=== PATIENT | female | born 1970 | race Hispanic/Latino ===

== ENCOUNTER 2017-07-15 23:23 | Emergency (ER) | payer MEDICAID, SELFPAY ==
--- NOTE | 2017-07-16 01:16 | EDPHYS ---
Physician Documentation [facility] Name: Joyce Anaya Age: 47 yrs Sex: Female : 1970 Arrival Date: 07/15/2017 Time: 23:43 Bed 25 Private MD: ED Physician Alvarez Gresham HPI: 07/16 01:13 This 47 yrs old Female presents to ER via Ambulatory with complaints of fall r gs wrist pain. 01:13 The patient or guardian reports pain. The complaints affect the right wrist diffusely. gs Context: resulted from a fall, slipped, while walking. Onset: The symptoms/episode began/occurred yesterday. Modifying factors: The symptoms are alleviated by nothing, the symptoms are aggravated by movement. Associated signs and symptoms: Pertinent negatives: decreased sensation distally, numbness distally. The patient has not experienced similar symptoms in the past. Historical: - Allergies: 00:00 No Known Allergies; bb - Home Meds: 07/15 23:59 None [Active]; tl3 07/16 00:00 vitamins [Active]; bb - PMHx: 00:00 allergies; bb - PSHx: 07/15 23:59 None; tl3 07/16 00:00 Tubal ligation; right ankle; bb - Immunization history:: Adult Immunizations up to date, Adult Immunizations up to date. - Social history:: Smoking status: Patient/guardian denies using tobacco, Patient uses alcohol, occasionally. Patient/guardian denies using street drugs, Smoking status: Patient/guardian denies using tobacco, never smoked. ROS: 01:13 All other systems are negative. gs Exam: 01:13 Head/Face: Normocephalic, atraumatic. Eyes: Pupils equal round and reactive to light, gs extra-ocular motions intact. Lids and lashes normal. Conjunctiva and sclera are non-icteric and not injected. Cornea within normal limits. Periorbital areas with no swelling, redness, or edema. ENT: Nares patent. No nasal discharge, no septal abnormalities noted. Tympanic membranes are normal and external auditory canals are clear. Oropharynx with no redness, swelling, or masses, exudates, or evidence of obstruction, uvula midline. Mucous membranes moist. Neck: Trachea midline, no thyromegaly or masses palpated, and no cervical lymphadenopathy. Supple, full range of motion without nuchal rigidity, or vertebral point tenderness. No Meningismus. Chest/axilla: Normal chest wall appearance and motion. Nontender with no deformity. No lesions are appreciated. Cardiovascular: Regular rate and rhythm with a normal S1 and S2. No gallops, murmurs, or rubs. Normal PMI, no JVD. No pulse deficits. Respiratory: Lungs have equal breath sounds bilaterally, clear to auscultation and percussion. No rales, rhonchi or wheezes noted. No increased work of breathing, no retractions or nasal flaring. Abdomen/GI: Soft, non-tender, with normal bowel sounds. No distension or tympany. No guarding or rebound. No evidence of tenderness throughout. Back: No spinal tenderness. No costovertebral tenderness. Full range of motion. Skin: Warm, dry with normal turgor. Normal color with no rashes, no lesions, and no evidence of cellulitis. Neuro: Awake and alert, GCS 15, oriented to person, place, time, and situation. Cranial nerves II-XII grossly intact. Motor strength 5/5 in all extremities. Sensory grossly intact. Cerebellar exam normal. Normal gait. 01:13 Musculoskeletal/extremity: Circulation is intact in all extremities. Joints: the right wrist displays tenderness. Vital Signs: 07/15 23:59 BP 131 / 100; Pulse 79; Resp 16; Temp 98.1; Pulse Ox 96% ; tl3 07/16 00:00 BP 131 / 100; Pulse 79; Resp 18 S; Temp 98.1(O); Pulse Ox 97% on R/A; Weight 97.52 kg bb (R); Height 5 ft. 9 in. (175.26 cm) (R); Pain 8/10; 00:53 BP 123 / 85; Pulse 82; Resp 18; Pulse Ox 98% ; tl3 00:00 Body Mass Index 31.75 (97.52 kg, 175.26 cm) bb MDM: 00:14 Patient medically screened. gs 01:13 Differential diagnosis: closed fracture, contusion. Data reviewed: vital signs, nurses gs notes, and as a result, I will discharge patient. 07/16 00:15 Order name: Wrist Right 3 View XRAY gs Administered Medications: No medications were administered Disposition: 07/16/17 01:15 Discharged to Home. Impression: Contusion of right wrist. - Condition is Stable. - Discharge Instructions: Wrist Pain. - Medication Reconciliation Form, Thank You Letter, Antibiotic Education, Prescription Opioid Use form. - Follow up: Saroj Culp MD; When: 2 - 3 days; Reason: Re-evaluation by your physician. Signatures: Dispatcher [employer] Alyssa Salcedo RN RN bb Alvarez Gresham MD MD gs Brown, Kristina RN RN kb1 Ayah Alatorre RN RN tl3
--- NOTE | 2017-07-16 01:16 | ER ---
Nurse's Notes [facility] Name: Joyce Anaya Age: 47 yrs Sex: Female : 1970 Arrival Date: 07/15/2017 Time: 23:43 Bed 25 Private MD: Diagnosis: Contusion of right wrist Presentation: 07/15 23:54 Presenting complaint: Patient states: she fell at the [facility] on Wednesday and injured her bb right wrist and her left shoulder has been hurting off and on for several months. Transition of care: patient was not received from another setting of care. Onset of symptoms was July 12, 2017. Care prior to arrival: None. 23:54 Method Of Arrival: Ambulatory bb 23:54 Acuity: MARC 4 bb Historical: - Allergies: 07/16 00:00 No Known Allergies; bb - Home Meds: 07/15 23:59 None [Active]; tl3 07/16 00:00 vitamins [Active]; bb - PMHx: 00:00 allergies; bb - PSHx: 07/15 23:59 None; tl3 07/16 00:00 Tubal ligation; right ankle; bb - Immunization history:: Adult Immunizations up to date, Adult Immunizations up to date. - Social history:: Smoking status: Patient/guardian denies using tobacco, Patient uses alcohol, occasionally. Patient/guardian denies using street drugs, Smoking status: Patient/guardian denies using tobacco, never smoked. Screenin/22 23:59 Abuse screen: Denies threats or abuse. Nutritional screening: No deficits noted. tl3 Tuberculosis screening: No symptoms or risk factors identified. Fall Risk None identified. Assessment: 23:54 General: Appears comfortable, obese, well groomed, well developed, well nourished, tl3 Behavior is calm, cooperative, appropriate for age. Pain: Complains of pain in right wrist pain, left shoulder pain. Neuro: Level of Consciousness is awake, alert, obeys commands, Oriented to person, place, time, situation, Appropriate for age. Cardiovascular: Heart tones S1 S2 present Capillary refill < 3 seconds in right in left fingers. Respiratory: Breath sounds are clear bilaterally. GI: No signs and/or symptoms were reported involving the gastrointestinal system. : No signs and/or symptoms were reported regarding the genitourinary system. EENT: No signs and/or symptoms were reported regarding the EENT system. Derm: No signs and/or symptoms reported regarding the dermatologic system. Musculoskeletal: No signs and/or symptoms reported regarding the musculoskeletal system. Injury Description: pt fell and caught herself with her right hand, possible mild swelling noted to wrist, good pulses, able to move fingers freely and flex hand. 07/16 00:53 Reassessment: Patient appears in no apparent distress at this time. No changes from tl3 previously documented assessment. Patient and/or family updated on plan of care and expected duration. Pain level reassessed. Patient is alert, oriented x 3, equal unlabored respirations, skin warm/dry/pink. awaiting radiology report. Vital Signs: 07/15 23:59 BP 131 / 100; Pulse 79; Resp 16; Temp 98.1; Pulse Ox 96% ; tl3 07/16 00:00 BP 131 / 100; Pulse 79; Resp 18 S; Temp 98.1(O); Pulse Ox 97% on R/A; Weight 97.52 kg bb (R); Height 5 ft. 9 in. (175.26 cm) (R); Pain 8/10; 00:53 BP 123 / 85; Pulse 82; Resp 18; Pulse Ox 98% ; tl3 00:00 Body Mass Index 31.75 (97.52 kg, 175.26 cm) ED Course: 07/15 23:43 Patient arrived in ED. bb 23:51 Alvarez Gresham MD is Attending Physician. gs 23:53 Ayah Alatorre, RN is Primary Nurse. tl3 23:57 Triage completed. bb 23:59 Resting quietly. tl3 23:59 Patient has correct armband on for positive identification. Bed in low position. Call tl3 light in reach. Side rails up X 1. Pulse ox on. NIBP on. 23:59 No provider procedures requiring assistance completed. Patient did not have IV access tl3 during this emergency room visit. 07/16 00:00 Arm band placed on Patient placed in an exam room, on a stretcher, on pulse oximetry. bb 00:38 X-ray completed. Portable x-ray completed in exam room. Patient tolerated procedure kw well. 00:42 Wrist Right 3 View XRAY Sent. tl3 01:15 Saroj Culp MD is Referral Physician. gs Administered Medications: No medications were administered Outcome: 01:15 Discharge ordered by . estrellita 01:45 Discharged to home Pt left without signing D/C paperwork kb1 01:46 Patient left the ED. kb1 Signatures: Alyssa Garcia RN RN bb Kailyn Fisher Gregory, MD MD gs Brown, Kristina, RN RN kb1 Ayah Alatorre RN RN tl3
[2017-07-16 01:57] VITALS: TEMP 98.1
[2017-07-16 01:59] VITALS: BP 123/85; O2SAT 98
--- NOTE | 2017-07-16 09:03 | RAD REPORT ---
EXAM DESCRIPTION: RAD - Wrist Right 3 View - 07/16/2017 12:41 am CLINICAL HISTORY: Injury, wrist pain COMPARISON: July 2012 FINDINGS: No fracture is identified. There is no dislocation or periosteal reaction noted. Epiphyses and growth plates are Normal in appearance. No foreign body or other soft tissue abnormality. IMPRESSION: Negative right wrist examination.
== END 2017-07-16 01:46 | disposition home or self-care (01) ==
LOC: ER 23:23
DX: S60.211A Contusion of right wrist, initial encounter (principal); W01.0XXA Fall on same level from slipping, tripping and stumbling without subsequent striking against object, initial encounter; Y93.01 Activity, walking, marching and hiking
CPT/HCPCS: 99283

== ENCOUNTER 2017-09-09 23:47 | Emergency (ER) | payer SELFPAY ==
[2017-09-10] MEDS ORDERED: HYDROCODONE/APAP 10/325 TAB ONE (01:05)
--- NOTE | 2017-09-10 01:41 | EDPHYS ---
Physician Documentation [facility] Name: Joyce Anaya Age: 47 yrs Sex: Female : 1970 Arrival Date: 09/09/2017 Time: 23:48 Bed 20 Private MD: ED Physician Gokul Pro HPI: 09/10 01:01 This 47 yrs old Female presents to ER via Wheelchair with complaints of Foot kasie Swelling. 01:01 The patient presents with decreased range of motion, pain. The complaints affect the kasie lateral aspect of right knee, lateral aspect of right calf, right ankle, lateral aspect of right foot, posterior aspect of right knee, right calf, right Achilles, right heel, medial aspect of right knee, medial aspect of right calf, medial aspect of right foot, right knee, right lewis, anterior aspect of right ankle and dorsum of right foot. Context: The problem was sustained at an unknown site, resulted from an unknown cause. Onset: The symptoms/episode began/occurred 3 day(s) ago. Modifying factors: The symptoms are alleviated by elevating leg. Associated signs and symptoms: The patient has no apparent associated signs or symptoms. The patient presents with decreased range of motion, pain. The complaints affect the right ankle, lateral aspect of right knee, lateral aspect of right calf, right ankle, lateral aspect of right foot, posterior aspect of right knee, right calf, right Achilles, right heel, medial aspect of right knee, medial aspect of right calf, medial aspect of right foot, right knee, right lewis, anterior aspect of right ankle and dorsum of right foot. 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 - Social history:: Smoking status: Patient/guardian denies using tobacco. - Family history:: not pertinent. ROS: 01:01 Constitutional: Negative for fever, chills, and weight loss, Eyes: Negative for injury, kasie pain, redness, and discharge, ENT: Negative for injury, pain, and discharge, Neck: Negative for injury, pain, and swelling, Cardiovascular: Negative for chest pain, palpitations, and edema, Respiratory: Negative for shortness of breath, cough, wheezing, and pleuritic chest pain, Abdomen/GI: Negative for abdominal pain, nausea, vomiting, diarrhea, and constipation, Back: Negative for injury and pain, : Negative for injury, bleeding, discharge, and swelling, Skin: Negative for injury, rash, and discoloration, Neuro: Negative for headache, weakness, numbness, tingling, and seizure, Psych: Negative for depression, anxiety, suicide ideation, homicidal ideation, and hallucinations, Allergy/Immunology: Negative for hives, rash, and allergies, Endocrine: Negative for neck swelling, polydipsia, polyuria, polyphagia, and marked weight changes, Hematologic/Lymphatic: Negative for swollen nodes, abnormal bleeding, and unusual bruising. 01:01 MS/extremity: Positive for decreased range of motion, pain, swelling, tenderness, of the lateral aspect of right knee, lateral aspect of right calf, right ankle, lateral aspect of right foot, posterior aspect of right knee, right calf, right Achilles, right heel, medial aspect of right knee, medial aspect of right calf, medial aspect of right foot, right knee, right lewis, anterior aspect of right ankle and dorsum of right foot. Exam: 01:01 Constitutional: This is a well developed, well nourished patient who is awake, alert, kasie and in no acute distress. Head/Face: Normocephalic, atraumatic. Eyes: Pupils equal round and reactive to light, extra-ocular motions intact. Lids and lashes normal. Conjunctiva and sclera are non-icteric and not injected. Cornea within normal limits. Periorbital areas with no swelling, redness, or edema. ENT: Nares patent. No nasal discharge, no septal abnormalities noted. Tympanic membranes are normal and external auditory canals are clear. Oropharynx with no redness, swelling, or masses, exudates, or evidence of obstruction, uvula midline. Mucous membranes moist. Neck: Trachea midline, no thyromegaly or masses palpated, and no cervical lymphadenopathy. Supple, full range of motion without nuchal rigidity, or vertebral point tenderness. No Meningismus. Chest/axilla: Normal chest wall appearance and motion. Nontender with no deformity. No lesions are appreciated. Cardiovascular: Regular rate and rhythm with a normal S1 and S2. No gallops, murmurs, or rubs. Normal PMI, no JVD. No pulse deficits. Respiratory: Lungs have equal breath sounds bilaterally, clear to auscultation and percussion. No rales, rhonchi or wheezes noted. No increased work of breathing, no retractions or nasal flaring. Abdomen/GI: Soft, non-tender, with normal bowel sounds. No distension or tympany. No guarding or rebound. No evidence of tenderness throughout. Back: No spinal tenderness. No costovertebral tenderness. Full range of motion. Skin: Warm, dry with normal turgor. Normal color with no rashes, no lesions, and no evidence of cellulitis. Neuro: Awake and alert, GCS 15, oriented to person, place, time, and situation. Cranial nerves II-XII grossly intact. Motor strength 5/5 in all extremities. Sensory grossly intact. Cerebellar exam normal. Normal gait. Psych: Awake, alert, with orientation to person, place and time. Behavior, mood, and affect are within normal limits. 01:01 Musculoskeletal/extremity: Extremities: noted in the lateral aspect of right knee, lateral aspect of right calf, right ankle, lateral aspect of right foot, posterior aspect of right knee, right calf, right Achilles, right heel, medial aspect of right knee, medial aspect of right calf, medial aspect of right foot, right knee, right lewis, anterior aspect of right ankle and dorsum of right foot: decreased ROM, pain. Vital Signs: 00:08 BP 141 / 82; Pulse 91; Resp 18; Pulse Ox 98% on R/A; ea 01:55 BP 138 / 60; Pulse 80; Resp 18 S; Pulse Ox 99% on R/A; Pain 5/10; ea MDM: 00:51 Patient medically screened. [facility] 01:03 Data reviewed: vital signs, nurses notes, lab test result(s), radiologic studies, plain kasie films, ultrasound. 09/10 01:00 Order name: Urine Culture [facility] 09/10 02:09 Order name: Urine Dipstick--Ancillary (enter results) 09/10 00:48 Order name: XRAY Ankle RIGHT 2 view 09/10 00:48 Order name: XRAY Knee RIGHT 2 view 09/10 01:00 Order name: US Extremity Venous Unilateral Ltd [facility] 09/10 02:09 Order name: Urine --Ancillary (enter results) 09/10 01:00 Order name: Urine Dipstick-Ancillary (obtain specimen); Complete Time: 02:09 [facility] Administered Medications: 01:15 Drug: [place] 10 mg-325 mg 1 tabs Route: PO; ea 01:55 Follow up: Response: No adverse reaction; Pain is decreased ea Disposition: 09/10/17 01:40 Discharged to Home. Impression: Edema, unspecified, Pain in right lower leg. - Condition is Stable. - Discharge Instructions: Edema, Musculoskeletal Pain, Edema, [id number]. - Prescriptions for Tylenol- Codeine #3 300-30 mg Oral Tablet - take 2 tablets by ORAL route every 6 hours As needed; 26 tablet. - Medication Reconciliation Form, Thank You Letter, Antibiotic Education, Prescription Opioid Use form. - Follow up: Private Physician; When: 2 - 3 days; Reason: Recheck today's complaints, Continuance of care, Re-evaluation by your physician. - Problem is new. - Symptoms have improved. Signatures: Dispatcher [employer] EDWY Gokul Pro MD MD cha Antunez, Elena, RN RN tracy Corrections: (The following items were deleted from the chart) 02:13 01:40 09/10/2017 01:40 Discharged to Home. Impression: Edema, unspecified; Pain in ea right lower leg. Condition is Stable. Forms are Medication Reconciliation Form, Thank You Letter, Antibiotic Education, Prescription Opioid Use. Follow up: Private Physician; When: 2 - 3 days; Reason: Recheck today's complaints, Continuance of care, Re-evaluation by your physician. Problem is new. Symptoms have improved. [facility]
--- NOTE | 2017-09-10 01:41 | ER ---
Nurse's Notes [facility] Name: Joyce Anaya Age: 47 yrs Sex: Female : 1970 Arrival Date: 09/09/2017 Time: 23:48 Bed 20 Private MD: Diagnosis: Edema, unspecified;Pain in right lower leg Presentation: 09/10 00:08 Presenting complaint: Patient states: She noticed her right ankle started swelling two ea days ago, pt reports today it is more swollen than usual denies injury to right ankle. Transition of care: patient was not received from another setting of care. Onset of symptoms was September 10, 2017. Initial Sepsis Screen: Does the patient meet any 2 criteria? No. Patient's initial sepsis screen is negative. Does the patient have a suspected source of infection? No. Patient's initial sepsis screen is negative. Care prior to arrival: None. 00:08 Method Of Arrival: Wheelchair ea 00:08 Acuity: MARC 4 ea Triage Assessment: 00:08 General: Appears in no apparent distress. Behavior is calm, cooperative, appropriate ea for age. Pain: Complains of pain in right ankle Pain radiates to right knee Pain currently is 9 out of 10 on a pain scale. Quality of pain is described as aching. EENT: No signs and/or symptoms were reported regarding the EENT system. Neuro: No deficits noted. Cardiovascular: No deficits noted. Patient's skin is warm and dry. Respiratory: Airway is patent Respiratory effort is even, unlabored, Respiratory pattern is regular, symmetrical. GI: No signs and/or symptoms were reported involving the gastrointestinal system. : No signs and/or symptoms were reported regarding the genitourinary system. Derm: Skin is dry, Skin is normal, Skin temperature is warm. Musculoskeletal: Swelling present in right ankle. 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 - Social history:: Smoking status: Patient/guardian denies using tobacco. - Family history:: not pertinent. Screenin:17 Abuse screen: Denies threats or abuse. Nutritional screening: No deficits noted. ea Tuberculosis screening: No symptoms or risk factors identified. Fall Risk None identified. Assessment: 01:55 Reassessment: Patient and/or family updated on plan of care and expected duration. Pain ea level reassessed. Patient is alert, oriented x 3, equal unlabored respirations, skin warm/dry/pink. Discharge instructions given to patient, verbalized the understanding of instructions. Vital Signs: 00:08 BP 141 / 82; Pulse 91; Resp 18; Pulse Ox 98% on R/A; ea 01:55 BP 138 / 60; Pulse 80; Resp 18 S; Pulse Ox 99% on R/A; Pain 5/10; ea ED Course: 09/09 23:48 Patient arrived in ED. ds1 09/10 00:08 Gina Alatorre, RN is Primary Nurse. ea 00:10 Arm band placed on right wrist. ea 00:14 Triage completed. ea 00:51 Gokul Pro MD is Attending Physician. kasie 01:04 X-ray completed. Portable x-ray completed in exam room. Patient tolerated procedure kw well. 01:05 XRAY Ankle RIGHT 2 view In Process Unspecified. EDMS 01:05 XRAY Knee RIGHT 2 view In Process Unspecified. EDMS 01:18 Patient has correct armband on for positive identification. Bed in low position. Call ea light in reach. Side rails up X2. 01:20 Patient taken to ultrasound. via wheelchair. aa4 01:35 Ultrasound completed. Patient tolerated well. Patient moved back from ultrasound. aa4 01:53 US Extremity Venous Unilateral Ltd In Process Unspecified. EDMS 02:08 No provider procedures requiring assistance completed. Patient did not have IV access ea during this emergency room visit. Administered Medications: 01:15 Drug: [place] 10 mg-325 mg 1 tabs Route: PO; ea 01:55 Follow up: Response: No adverse reaction; Pain is decreased ea Outcome: 01:40 Discharge ordered by . kasie 02:10 Discharged to home via wheelchair, with family. ea 02:10 Condition: improved 02:10 Instructed on discharge instructions, follow up and referral plans. medication usage, Demonstrated understanding of instructions, follow-up care, medications. 02:13 Patient left the ED. ea Signatures: Dispatcher [employer] EDGokul Morel MD MD cha Sanford, Demi ds1 Dahiana Harrison aa4 Natalia, Gina Wahl, RN JEMAL molina Corrections: (The following items were deleted from the chart) 02:17 02:12 LMP 09/04/2017 tracy molina
[2017-09-10 02:24] VITALS: BP 141/82; O2SAT 98
[2017-09-10 02:57] LABS: Urine Blood 2+ (NEG); Urine Glucose NEGATIVE (NEG); Urine Protein NEGATIVE (NEG)
--- NOTE | 2017-09-10 07:55 | RAD REPORT ---
EXAM DESCRIPTION: MARILOUExtretoo Venous Uni Ltd09/10/2017 1:53 am CLINICAL HISTORY: Right leg pain and swelling. COMPARISON: None. FINDINGS: Right common femoral, superficial femoral, popliteal and right posterior tibial veins are compressible and demonstrate augmentation. Doppler demonstrates good flow. IMPRESSION: No evidence of deep venous thrombosis involving the right lower extremity.
--- NOTE | 2017-09-10 08:19 | RAD REPORT ---
EXAM DESCRIPTION: RAD - Ankle Right 2 View - 09/10/2017 1:05 am CLINICAL HISTORY: Right ankle pain FINDINGS: No fracture or dislocation is seen. Soft tissue swelling is present. A moderate plantar calcaneal spur is present
--- NOTE | 2017-09-10 08:20 | RAD REPORT ---
EXAM DESCRIPTION: RAD - Knee Right 2 View - 09/10/2017 1:05 am CLINICAL HISTORY: Right knee pain FINDINGS: No fracture or dislocation is seen. Mild narrowing involves the lateral compartment. Diffuse edema is present within the subcutaneous tissues A limited two-view series was obtained
== END 2017-09-10 02:13 | disposition home or self-care (01) ==
LOC: ER 23:47
DX: R60.0 Localized edema (principal)
CPT/HCPCS: 81003; 81025; 87086; 87088; 93971; 99284

== ENCOUNTER 2017-10-03 20:53 | Emergency (ER) | payer SELFPAY ==
[2017-10-03] MEDS ORDERED: MORPHINE 4 MG/ML SYR ONE (21:47)
[2017-10-03] MEDS ORDERED: NA CHLORIDE 0.9% 1,000 ML ONE (21:47)
[2017-10-03] MEDS ORDERED: ONDANSETRON 4 MG/2 ML VIAL ONE (21:47)
[2017-10-03 22:02] LABS: Absolute Monocytes 0.9 K/uL (0.1-1.3); Absolute Neutrophil 4.9 K/uL (1.8-8.0); Basophils % 0.6 % (0-1.3); Eosinophils % 3.7 % (0-4.4); Hematocrit 42.1 % (36.0-45.0); Lymphocytes % 32.9 % (15.3-44.8); MCH 29.9 pg (27.0-35.0); MCV 90.2 fL (80-100); Monocytes % 9.3 % (3.3-12.3); RBC Red Blood Cell Count 4.67 M/uL (3.86-4.86)
[2017-10-03 22:08] LABS: Bicarbonate 25 mEq/L (21-31); Glucose Level 138 mg/dL (65-120); Potassium 3.5 mEq/L (3.6-5.0); Sodium Level 138 mEq/L (135-145)
[2017-10-03 22:15] LABS: ALT/SGPT 47 IU/L (10-60); AST/SGOT 41 IU/L (10-42); Albumin 3.7 g/dL (3.2-5.5); Alkaline Phosphatase 121 IU/L (42-121); BUN Blood Urea Nitrogen 14 mg/dL (6-20); Bilirubin Direct 0.1 mg/dL (0-0.2); Bilirubin Total 0.4 mg/dL (0.3-1.2); Creatine Phosphokinase 97 IU/L (22-269); Magnesium 2.2 mg/dL (1.8-2.5); Protein, Total 7.8 g/dL (6.0-8.3)
[2017-10-03 22:17] LABS: Protime INR 0.97
[2017-10-03 22:19] LABS: CKMB Creatine Kinase MB 0.9 ng/ml (0.3-4.0)
[2017-10-04] MEDS ORDERED: POTASSIUM CL SA 10 MEQ TAB PO ONE (00:02)
--- NOTE | 2017-10-04 01:34 | ER ---
Nurse's Notes [facility] Name: Joyce Anaya Age: 47 yrs Sex: Female : 1970 Arrival Date: 10/03/2017 Time: 20:54 Bed 26 Private MD: Diagnosis: Chest pain Presentation: 10/03 23:23 Presenting complaint: Patient states: chest pain that started at 830pm while arguing tl3 with son on the telephone. Transition of care: patient was not received from another setting of care. Onset of symptoms was October 03, 2017. Risk Assessment: Do you want to hurt yourself or someone else?. Initial Sepsis Screen: Does the patient meet any 2 criteria? No. Patient's initial sepsis screen is negative. Does the patient have a suspected source of infection? No. Patient's initial sepsis screen is negative. Care prior to arrival: None. 23:23 Method Of Arrival: Ambulatory tl3 23:23 Acuity: MARC 3 tl3 Triage Assessment: 23:23 General: Appears distressed, uncomfortable, Behavior is cooperative, crying. Pain: tl3 Complains of pain in chest and back. EENT: No deficits noted. No signs and/or symptoms were reported regarding the EENT system. Neuro: No deficits noted. Cardiovascular: Reports chest pain, Heart tones S1 S2 present Patient's skin is warm and dry. Respiratory: Airway is patent Respiratory effort is even, unlabored, Respiratory pattern is regular, symmetrical, Breath sounds are clear bilaterally. GI: No deficits noted. No signs and/or symptoms were reported involving the gastrointestinal system. : No deficits noted. No signs and/or symptoms were reported regarding the genitourinary system. Derm: No deficits noted. No signs and/or symptoms reported regarding the dermatologic system. Musculoskeletal: No deficits noted. No signs and/or symptoms reported regarding the musculoskeletal system. [facility]: 23:23 LMP N/A - Hysterectomy tl3 Historical: - Home Meds: 21:13 vitamins [Active]; tl3 - PMHx: 21:13 allergies; Anxiety; tl3 - PSHx: 21:13 Tubal ligation; tl3 - Immunization history:: Adult Immunizations up to date. - Social history:: Smoking status: Patient/guardian denies using tobacco, never smoked. - Ebola Screening: : Patient denies travel to an Ebola-affected area in the 21 days before illness onset. Screenin:13 Abuse screen: Denies threats or abuse. Nutritional screening: No deficits noted. tl3 Tuberculosis screening: No symptoms or risk factors identified. Fall Risk None identified. Assessment: 21:10 General: Appears distressed, obese, well groomed, well developed, well nourished, tl3 Behavior is cooperative, appropriate for age, crying. Pain: Complains of pain in chest Pain radiates to back Pain began suddenly, 830pm. Neuro: Level of Consciousness is awake, alert, obeys commands, Oriented to person, place, time, situation, Appropriate for age. Cardiovascular: Heart tones S1 S2 present Patient's skin is warm and dry. Respiratory: Airway is patent Respiratory effort is even, Respiratory pattern is regular, symmetrical, Breath sounds are clear bilaterally. GI: No deficits noted. No signs and/or symptoms were reported involving the gastrointestinal system. : No deficits noted. No signs and/or symptoms were reported regarding the genitourinary system. EENT: No deficits noted. No signs and/or symptoms were reported regarding the EENT system. Derm: No deficits noted. No signs and/or symptoms reported regarding the dermatologic system. Musculoskeletal: No deficits noted. No signs and/or symptoms reported regarding the musculoskeletal system. 21:15 Reassessment: pt reports that she was on the phone with her son when they started tl3 arguing at 8:30pm, she got upset and her chest started hurting, pain with palpation and deep breathing. 22:30 Reassessment: Patient appears in no apparent distress at this time. No changes from tl3 previously documented assessment. Patient and/or family updated on plan of care and expected duration. Pain level reassessed. Patient is alert, oriented x 3, equal unlabored respirations, skin warm/dry/pink. 10/04 00:17 Reassessment: Patient appears in no apparent distress at this time. No changes from tl3 previously documented assessment. Patient and/or family updated on plan of care and expected duration. Pain level reassessed. Patient is alert, oriented x 3, equal unlabored respirations, skin warm/dry/pink. Vital Signs: 10/03 21:13 BP 137 / 86; Pulse 85; Resp 18; Pulse Ox 96% ; tl3 23:23 BP 130 / 84; Pulse 83; Resp 18; Pulse Ox 97% on R/A; tl3 10/04 00:17 BP 137 / 82; Pulse 73; Resp 18; Pulse Ox 96% ; tl3 01:30 BP 124 / 77; Pulse 81; Resp 17; Pulse Ox 97% on R/A; rk2 ED Course: 10/03 20:54 Patient arrived in ED. am2 21:05 Ayah Alatorre, RN is Primary Nurse. tl3 21:13 Patient has correct armband on for positive identification. Placed in gown. Bed in low tl3 position. Call light in reach. Side rails up X2. Adult w/ patient. playground monitor on. Pulse ox on. NIBP on. 21:13 No provider procedures requiring assistance completed. Patient maintains SpO2 tl3 saturation greater than 95% on room air. 21:20 Pollo Baltazar MD is Attending Physician. pkl 22:35 XRAY Chest (1 view) In Process Unspecified. EDMS 23:23 Arm band placed on right wrist. EKG completed in triage. Results shown to MD. tl3 23:24 Triage completed. tl3 10/04 00:19 Troponin (emerg Dept Use Only) Sent. tl3 01:41 IV discontinued. rk2 Administered Medications: 10/03 21:36 Drug: NS 0.9% 1000 ml Route: IV; Rate: 125 ml/hr; Site: right forearm; rk2 23:27 Follow up: IV Status: Completed infusion; IV Intake: 1000ml tl3 10/04 01:40 Follow up: Response: No adverse reaction; IV Status: Completed infusion rk2 10/03 21:36 Drug: morphine 4 mg Route: IVP; Site: right forearm; rk2 23:26 Follow up: Response: Pain is decreased tl3 21:36 Drug: Zofran 4 mg Route: IVP; Site: right forearm; rk2 23:26 Follow up: Response: No adverse reaction tl3 10/04 00:19 Drug: K-Dur 20 mEq Route: PO; tl3 00:19 Follow up: Response: No adverse reaction tl3 Intake: 10/03 23:27 IV: 1000ml; Total: 1000ml. tl3 Outcome: 10/04 01:34 Discharge ordered by . pkl 01:41 Discharged to home via wheelchair. rk2 01:41 Condition: good 01:41 Discharge instructions given to patient, Prescriptions given X 1. 01:42 Patient left the ED. rk2 Signatures: Dispatcher [employer] EDMS Pollo Baltazar MD MD pkl Moreno, Amanda am2 Jesi Palmer RN RN rk2 Ayah Alatorre RN RN tl3
--- NOTE | 2017-10-04 01:35 | EDPHYS ---
Physician Documentation [facility] Name: Joyce Anaya Age: 47 yrs Sex: Female : 1970 Arrival Date: 10/03/2017 Time: 20:54 Bed 26 Private MD: ED Physician Pollo Baltazar HPI: 10/03 21:30 This 47 yrs old Female presents to ER via Unassigned with complaints of Chest pkl Pain > 30 y/o, Breathing Difficulty. 21:30 The patient or guardian reports chest pain that is located primarily in the left upper pkl chest. Onset: just prior to arrival, 1 hour(s) ago. The pain radiates to left back. Associated signs and symptoms: Pertinent positives: None. The chest pain is described as sharp. The patient has experienced a previous episode, approximately 1 years ago. 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 - Social history:: Smoking status: Patient/guardian denies using tobacco, never smoked. - Ebola Screening: : Patient denies travel to an Ebola-affected area in the 21 days before illness onset. ROS: 21:30 Eyes: Negative for injury, pain, redness, and discharge, ENT: Negative for injury, pkl pain, and discharge, Neck: Negative for injury, pain, and swelling. 21:30 Cardiovascular: Positive for chest pain. 21:30 Respiratory: Negative for cough, shortness of breath. 21:30 Abdomen/GI: Negative for abdominal pain, nausea, vomiting, and diarrhea. 21:30 Back: Negative for acute changes. 21:30 : Negative for urinary symptoms. 21:30 MS/extremity: Negative for acute changes. 21:30 Skin: Negative for rash. 21:30 Neuro: Negative for altered mental status. Exam: 21:30 Head/Face: Normocephalic, atraumatic. Eyes: Pupils equal round and reactive to light, pkl extra-ocular motions intact. Lids and lashes normal. Conjunctiva and sclera are non-icteric and not injected. Cornea within normal limits. Periorbital areas with no swelling, redness, or edema. ENT: Nares patent. No nasal discharge, no septal abnormalities noted. Tympanic membranes are normal and external auditory canals are clear. Oropharynx with no redness, swelling, or masses, exudates, or evidence of obstruction, uvula midline. Mucous membranes moist. Neck: Trachea midline, no thyromegaly or masses palpated, and no cervical lymphadenopathy. Supple, full range of motion without nuchal rigidity, or vertebral point tenderness. No Meningismus. Chest/axilla: Normal chest wall appearance and motion. Nontender with no deformity. No lesions are appreciated. Cardiovascular: Regular rate and rhythm with a normal S1 and S2. No gallops, murmurs, or rubs. Normal PMI, no JVD. No pulse deficits. Respiratory: Lungs have equal breath sounds bilaterally, clear to auscultation and percussion. No rales, rhonchi or wheezes noted. No increased work of breathing, no retractions or nasal flaring. Abdomen/GI: Soft, non-tender, with normal bowel sounds. No distension or tympany. No guarding or rebound. No evidence of tenderness throughout. Back: No spinal tenderness. No costovertebral tenderness. Full range of motion. Skin: Warm, dry with normal turgor. Normal color with no rashes, no lesions, and no evidence of cellulitis. MS/ Extremity: Pulses equal, no cyanosis. Neurovascular intact. Full, normal range of motion. Neuro: Awake and alert, GCS 15, oriented to person, place, time, and situation. Cranial nerves II-XII grossly intact. Motor strength 5/5 in all extremities. Sensory grossly intact. Cerebellar exam normal. Normal gait. Vital Signs: 21:13 BP 137 / 86; Pulse 85; Resp 18; Pulse Ox 96% ; tl3 23:23 BP 130 / 84; Pulse 83; Resp 18; Pulse Ox 97% on R/A; tl3 10/04 00:17 BP 137 / 82; Pulse 73; Resp 18; Pulse Ox 96% ; tl3 01:30 BP 124 / 77; Pulse 81; Resp 17; Pulse Ox 97% on R/A; rk2 MDM: 10/03 21:20 Patient medically screened. pkl 10/04 01:33 Data reviewed: vital signs, nurses notes, lab test result(s), EKG, radiologic studies, pk plain films. 10/03 21:28 Order name: Basic Metabolic Panel; Complete Time: 23:38 pkl 10/03 21:28 Order name: BNP; Complete Time: 23:38 pkl 10/03 21:28 Order name: CBC with Diff; Complete Time: 23:38 pkl 10/03 21:28 Order name: Ckmb; Complete Time: 23:38 pkl 10/03 21:28 Order name: CPK; Complete Time: 23:38 pkl 10/03 21:28 Order name: LFT's; Complete Time: 23:38 pkl 10/03 21:28 Order name: Magnesium; Complete Time: 23:38 pkl 10/03 21:28 Order name: PT-INR; Complete Time: 23:38 pkl 10/03 21:28 Order name: Ptt, Activated; Complete Time: 23:38 pkl 10/03 21:28 Order name: Troponin (emerg Dept Use Only); Complete Time: 23:38 pkl 10/03 21:28 Order name: D-Dimer; Complete Time: 23:38 pkl 10/03 23:41 Order name: Urine Dipstick--Ancillary (enter results) rg2 10/03 23:41 Order name: Urine --Ancillary (enter results) rg2 10/03 23:43 Order name: Troponin (emerg Dept Use Only); Complete Time: 01:32 pkl 10/03 21:28 Order name: XRAY Chest (1 view) pkl 10/03 21:28 Order name: EKG; Complete Time: 21:29 pkl 10/03 21:28 Order name: Cardiac monitoring; Complete Time: 23:50 pkl 10/03 21:28 Order name: EKG - Nurse/Tech; Complete Time: 23:50 pkl 10/03 21:28 Order name: IV Saline Lock; Complete Time: 23:50 pkl 10/03 21:28 Order name: Labs collected and sent; Complete Time: 23:50 pkl 10/03 21:28 Order name: O2 Per Protocol; Complete Time: 23:50 pkl 10/03 21:28 Order name: O2 Sat Monitoring; Complete Time: 23:50 pkl 10/03 21:28 Order name: Urine Dipstick-Ancillary (obtain specimen); Complete Time: 23:50 pkl 10/03 23:43 Order name: EKG; Complete Time: 23:43 pkl 10/04 01:06 Order name: EKG - Nurse/Tech; Complete Time: 01:17 aa1 Administered Medications: 10/03 21:36 Drug: NS 0.9% 1000 ml Route: IV; Rate: 125 ml/hr; Site: right forearm; rk2 23:27 Follow up: IV Status: Completed infusion; IV Intake: 1000ml tl3 10/04 01:40 Follow up: Response: No adverse reaction; IV Status: Completed infusion rk2 10/03 21:36 Drug: morphine 4 mg Route: IVP; Site: right forearm; rk2 23:26 Follow up: Response: Pain is decreased tl3 21:36 Drug: Zofran 4 mg Route: IVP; Site: right forearm; rk2 23:26 Follow up: Response: No adverse reaction tl3 10/04 00:19 Drug: K-Dur 20 mEq Route: PO; tl3 00:19 Follow up: Response: No adverse reaction tl3 Disposition: 10/04/17 01:34 Discharged to Home. Impression: Chest pain. - Condition is Stable. - Prescriptions for Ultram 50 mg Oral Tablet - take 1 tablet by ORAL route every 8 hours As needed; 15 tablet. - Medication Reconciliation Form, Thank You Letter, Antibiotic Education, Prescription Opioid Use form. - Follow up: Private Physician; When: 2 - 3 days; Reason: Re-evaluation by your physician. - Problem is new. - Symptoms have improved. Signatures: Dispatcher [employer] EDMS Marie Burrell RN RN aa1 Pollo Baltazar MD MD pkl Jesi Palmer RN RN rk2 Ayah Alatorre RN RN tl3 Corrections: (The following items were deleted from the chart) 01:42 01:34 10/04/2017 01:34 Discharged to Home. Impression: Chest pain. Condition is Stable. rk2 Forms are Medication Reconciliation Form, Thank You Letter, Antibiotic Education, Prescription Opioid Use. Follow up: Private Physician; When: 2 - 3 days; Reason: Re-evaluation by your physician. Problem is new. Symptoms have improved. pkl
[2017-10-04 02:15] VITALS: BP 124/77; O2SAT 97
[2017-10-04 02:28] LABS: Urine Blood 1+ (NEG); Urine Glucose NEGATIVE (NEG); Urine Protein NEGATIVE (NEG)
--- NOTE | 2017-10-04 06:28 | EKG ---
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
--- NOTE | 2017-10-04 06:29 | EKG ---
Test Date: 2017-10-03 Test Time: 23:09:46 Scale Reclamation Tender: TL MEASUREMENT RESULTS: Intervals: Rate: 79 GA: 154 QRSD: 98 QT: 400 QTc: 458 [place]: P: 39 GA: 154 QRS: 25 T: 23 INTERPRETIVE STATEMENTS: Normal sinus rhythm Normal ECG Compared to ECG 11/05/2015 16:38:34 Left ventricular hypertrophy no longer present Electronically Signed On 10-04-17 06:28:15 CDT by Meño Kirby
--- NOTE | 2017-10-04 08:05 | RAD REPORT ---
EXAM DESCRIPTION: Fan Single View10/03/2017 10:35 pm CLINICAL HISTORY: Chest pain COMPARISON: 2016 FINDINGS: The left base is hazy. The remainder lungs appear clear. The heart is normal size IMPRESSION: The left base is hazy probably secondary to overlying soft tissue. An infiltrate can als o have this appearance. If clinically indicated further evaluation with PA and lateral chest series c ould be obtained
== END 2017-10-04 01:42 | disposition home or self-care (01) ==
LOC: ER 20:53
DX: R07.9 Chest pain, unspecified (principal)
CPT/HCPCS: 36415; 71045; 80048; 80076; 81003; 81025; 82550; 82553; 83735; 83880; 84484; 85025; 85379; 85610; 85730; 93005; 96361; 96374; 96375; 99285; J2405; J7030

== ENCOUNTER 2017-10-14 12:52 | Emergency (ER) | payer SELFPAY ==
[~2017-10-14 12:52] MED LIST: ALBUTEROL 2.5 MG/3 ML NEB SOL ONE; IPRATROPIUM BROM 0.5MG/2.5ML ONE
--- NOTE | 2017-10-14 13:38 | RAD REPORT ---
EXAM DESCRIPTION: Fan Single View10/14/2017 1:31 pm CLINICAL HISTORY: Chest pain COMPARISON: 2016 FINDINGS: The lungs appear clear of acute infiltrate. The heart is normal size IMPRESSION: No acute abnormalities displayed
[2017-10-14 13:45] LABS: Absolute Lymphocytes (CBC) 2.3 K/uL (0.7-4.9); Absolute Monocytes 0.6 K/uL (0.1-1.3); Absolute Neutrophil 3.4 K/uL (1.8-8.0); Basophils % 0.8 % (0-1.3); Eosinophils % 4.5 % (0-4.4); Hematocrit 43.5 % (36.0-45.0); Lymphocytes % 34.3 % (15.3-44.8); MCH 29.6 pg (27.0-35.0); MCV 90.2 fL (80-100); MPV 10.4 fL (7.6-11.3); Monocytes % 9.5 % (3.3-12.3); RBC Red Blood Cell Count 4.83 M/uL (3.86-4.86)
[2017-10-14 14:01] LABS: BUN Blood Urea Nitrogen 9 mg/dL (7-18); Bicarbonate 29 mmol/L (21-32); Glucose Level 95 mg/dL (74-106); Potassium 3.8 mmol/L (3.5-5.1); Sodium Level 141 mmol/L (136-145)
--- NOTE | 2017-10-14 14:18 | ER ---
Nurse's Notes [facility] Name: Joyce Anaya Age: 47 yrs Sex: Female : 1970 Arrival Date: 10/14/2017 Time: 12:54 Bed 18 Private MD: None, None Diagnosis: Chest pain, unspecified Presentation: 10/14 12:58 Presenting complaint: Patient states: CP that started this morning, worsened by sg coughing/sneezing, reports pain radiates to back of left shoulder, denies N/V/D. Transition of care: patient was not received from another setting of care. Onset of symptoms was October 14, 2017. Risk Assessment: Do you want to hurt yourself or someone else? Patient reports no desire to harm self or others. Initial Sepsis Screen: Does the patient meet any 2 criteria? No. Patient's initial sepsis screen is negative. Does the patient have a suspected source of infection? No. Patient's initial sepsis screen is negative. Care prior to arrival: None. 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 - Social history:: Smoking status: Patient/guardian denies using tobacco, never smoked. - Ebola Screening: : Patient negative for fever greater than or equal to 101.5 degrees Fahrenheit, and additional compatible Ebola Virus Disease symptoms Patient denies exposure to infectious person Patient denies travel to an Ebola-affected area in the 21 days before illness onset No symptoms or risks identified at this time. - Family history:: not pertinent. - Hospitalizations: : No recent hospitalization is reported. Screenin:15 Abuse screen: Denies threats or abuse. Denies injuries from another. Nutritional jl7 screening: No deficits noted. Tuberculosis screening: No symptoms or risk factors identified. Fall Risk IV access (20 points). Total Serrano Fall Scale indicates No Risk (0-24 pts). Assessment: 13:15 General: Appears in no apparent distress. uncomfortable, Behavior is calm, cooperative. jl7 Pain: Complains of pain in anterior aspect of left upper chest Pain radiates to left scapular area Pain currently is 10 out of 10 on a pain scale. Quality of pain is described as stabbing, Pain began 1 day ago. Is continuous. Neuro: Level of Consciousness is awake, alert, obeys commands, Oriented to person, place, time, situation. Cardiovascular: Heart tones S1 S2 present Patient's skin is warm and dry. Respiratory: Airway is patent Respiratory effort is even, unlabored, Respiratory pattern is regular, symmetrical, Breath sounds are clear bilaterally. GI: No signs and/or symptoms were reported involving the gastrointestinal system. : No signs and/or symptoms were reported regarding the genitourinary system. EENT: No signs and/or symptoms were reported regarding the EENT system. Derm: Skin is pink, warm \T\ dry. Musculoskeletal: No signs and/or symptoms reported regarding the musculoskeletal system. 14:15 Reassessment: No changes from previously documented assessment. Patient and/or family jl7 updated on plan of care and expected duration. Pain level reassessed. Patient is alert, oriented x 3, equal unlabored respirations, skin warm/dry/pink. Vital Signs: 12:59 BP 140 / 98; Pulse 59; Resp 16; Temp 97.8(TE); Pulse Ox 99% ; Weight 90.72 kg (R); sg Height 5 ft. 9 in. (175.26 cm) (R); Pain 10/10; 14:29 BP 139 / 88; Pulse 87; Resp 16; Pulse Ox 99% ; jl7 12:59 Body Mass Index 29.53 (90.72 kg, 175.26 cm) sg ED Course: 12:54 Patient arrived in ED. sb2 12:55 None, None is Private Physician. sb2 12:59 Triage completed. sg 12:59 Arm band placed on. sg 13:09 Jak Ring, RN is Primary Nurse. jl7 13:15 Jeremiah Sawyer MD is Attending Physician. rn 13:15 Patient has correct armband on for positive identification. Placed in gown. Bed in low jl7 position. Call light in reach. Side rails up X 1. conveyor monitor on. Pulse ox on. NIBP on. Warm blanket given. 13:25 EKG done, by ED staff, reviewed by Jeremiah Sawyer MD. em1 13:30 Initial lab(s) drawn, by me, sent to lab. Inserted saline lock: 20 gauge in left jl7 antecubital area, using aseptic technique. Blood collected. Patient maintains SpO2 saturation greater than 95% on room air. 13:31 X-ray completed. Portable x-ray completed in exam room. Patient tolerated procedure jr1 well. 13:31 XRAY Chest (1 view) In Process Unspecified. EDMS 14:29 No provider procedures requiring assistance completed. jl7 14:36 IV discontinued, intact, bleeding controlled, No redness/swelling at site. Pressure jl7 dressing applied. Administered Medications: No medications were administered Outcome: 14:17 Discharge ordered by . rn 14:36 Discharged to home ambulatory. jl7 14:36 Condition: stable 14:36 Discharge instructions given to patient, Instructed on discharge instructions, follow up and referral plans. Demonstrated understanding of instructions, follow-up care. 14:36 Patient left the ED. jl7 Signatures: Dispatcher [employer] EDMS Jose Varela RN RN sg [place], Jennifer jr1 Jeremiah Sawyer MD MD rn Martinez, Eric em1 Jak Ring RN RN jl7 Eliz Rolle sb2
--- NOTE | 2017-10-14 14:18 | EDPHYS ---
Physician Documentation [facility] Name: Joyce Anaya Age: 47 yrs Sex: Female : 1970 Arrival Date: 10/14/2017 Time: 12:54 Bed 18 Private MD: None, None ED Physician Jeremiah Sawyer HPI: 10/14 14:01 This 47 yrs old Female presents to ER via Ambulatory with complaints of Chest rn Pain. 14:01 The patient or guardian reports chest pain that is located primarily in the anterior rn chest wall, left. Onset: last night. The pain does not radiate. Associated signs and symptoms: Pertinent negatives: abdominal pain, cough, diaphoresis, dizziness, headache, lower extremity pain, lower extremity swelling, lightheadedness, nausea, near syncope, palpitations, recent travel, shortness of breath, syncope, vomiting. The chest pain is described as sharp, stabbing. Duration: The patient or guardian reports multiple episodes, that are intermittent. Modifying factors: The symptoms are alleviated by nothing. the symptoms are aggravated by palpation of area. Severity of pain: At its worst the pain was mild in the emergency department the pain is unchanged. The patient has not experienced similar symptoms in the past. Left sided anterior chest pain, worse with palpation, no trauma, no cough/sob, no famhx of early cardiac problems. . SAWSMITH: 12:59 LMP 09/04/2017 sg Historical: - Allergies: 12:58 No Known Allergies; sg - PMHx: 12:58 allergies; Anxiety; sg - PSHx: 12:58 Tubal ligation; sg - Immunization history:: Adult Immunizations up to date. - Social history:: Smoking status: Patient/guardian denies using tobacco, never smoked. - Ebola Screening: : Patient negative for fever greater than or equal to 101.5 degrees Fahrenheit, and additional compatible Ebola Virus Disease symptoms Patient denies exposure to infectious person Patient denies travel to an Ebola-affected area in the 21 days before illness onset No symptoms or risks identified at this time. - Family history:: not pertinent. - Hospitalizations: : No recent hospitalization is reported. ROS: 14:01 Constitutional: Negative for fever, chills, and weight loss, Eyes: Negative for injury, rn pain, redness, and discharge, Cardiovascular: Negative for palpitations, and edema, Respiratory: Negative for shortness of breath, cough, wheezing Abdomen/GI: Negative for abdominal pain, nausea, vomiting, diarrhea, and constipation, MS/Extremity: Negative for injury and deformity, Skin: Negative for injury, rash, and discoloration, Neuro: Negative for headache, weakness, numbness, tingling, and seizure. Exam: 14:01 Constitutional: This is a well developed, well nourished patient who is awake, alert, rn and in no acute distress. Head/Face: Normocephalic, atraumatic. Eyes: Pupils equal round and reactive to light, extra-ocular motions intact. Lids and lashes normal. Conjunctiva and sclera are non-icteric and not injected. Cornea within normal limits. Periorbital areas with no swelling, redness, or edema. Chest/axilla: + reproducible left anterior chest wall tenderness Cardiovascular: Regular rate and rhythm with a normal S1 and S2. No gallops, murmurs, or rubs. Normal PMI, no JVD. No pulse deficits. Respiratory: Lungs have equal breath sounds bilaterally, clear to auscultation and percussion. No rales, rhonchi or wheezes noted. No increased work of breathing, no retractions or nasal flaring. Abdomen/GI: Soft, non-tender, with normal bowel sounds. No distension or tympany. No guarding or rebound. No evidence of tenderness throughout. MS/ Extremity: Pulses equal, no cyanosis. Neurovascular intact. Full, normal range of motion. Equal circumference. Neuro: Awake and alert, GCS 15, oriented to person, place, time, and situation. Cranial nerves II-XII grossly intact. Motor strength 5/5 in all extremities. Sensory grossly intact. 14:16 ECG was reviewed by the Attending Physician. rn Vital Signs: 12:59 BP 140 / 98; Pulse 59; Resp 16; Temp 97.8(TE); Pulse Ox 99% ; Weight 90.72 kg (R); sg Height 5 ft. 9 in. (175.26 cm) (R); Pain 10/10; 14:29 BP 139 / 88; Pulse 87; Resp 16; Pulse Ox 99% ; jl7 12:59 Body Mass Index 29.53 (90.72 kg, 175.26 cm) sg MDM: 13:15 Patient medically screened. rn 14:16 Differential diagnosis: acute myocardial infarction, acute pericarditis, chest wall rn pain, costochondritis, gastroesophageal reflux disease (GERD), pleurisy, pneumothorax. Data reviewed: vital signs, nurses notes, lab test result(s), EKG, radiologic studies, plain films, and as a result, I will discharge patient. Counseling: I had a detailed discussion with the patient and/or guardian regarding: the historical points, exam findings, and any diagnostic results supporting the discharge/admit diagnosis, lab results, radiology results, the need for outpatient follow up, to return to the emergency department if symptoms worsen or persist or if there are any questions or concerns that arise at home. Special discussion: Based on the patient's history, exam, and Dx evaluation, there is no indication for emergent intervention or inpatient Tx. It is understood by the patient/guardian that if the Sx's persist or worsen they need to return immediately for re-evaluation. I discussed with the patient/guardian in detail that at this point there is no indication for admission to the hospital. It is understood, however, that if the symptoms persist or worsen the patient needs to return immediately for re-evaluation. ED course: Pt meets PERC criteria, normal w/u here, reproducible chest wall pain, will dc home with pcp f/u. . 10/14 13:20 Order name: Basic Metabolic Panel; Complete Time: 14:07 rn 10/14 13:20 Order name: CBC with Diff; Complete Time: 14: rn 10/14 13:20 Order name: Troponin (emerg Dept Use Only); Complete Time: 14:07 rn 10/14 13:20 Order name: XRAY Chest (1 view); Complete Time: 13:39 rn 10/14 13:20 Order name: EKG; Complete Time: 13:21 rn 10/14 13:20 Order name: Cardiac monitoring; Complete Time: 13:44 rn 10/14 13:20 Order name: EKG - Nurse/Tech; Complete Time: 13:24 rn 10/14 13:20 Order name: IV Saline Lock; Complete Time: 13:44 rn 10/14 13:20 Order name: Labs collected and sent; Complete Time: 13:44 rn 10/14 13:20 Order name: O2 Per Protocol; Complete Time: 13:44 rn 10/14 13:20 Order name: O2 Sat Monitoring; Complete Time: 13:44 rn EC:16 Rate is 61 beats/min. Rhythm is regular. QRS [place] is Normal. ND interval is normal. QT rn interval is normal. No Q waves. T waves are Normal. No ST changes noted. Clinical impression: Normal ECG. Interpreted by me. Administered Medications: No medications were administered Disposition: 10/14/17 14:17 Discharged to Home. Impression: Chest pain, unspecified. - Condition is Stable. - Discharge Instructions: Nonspecific Chest Pain. - Medication Reconciliation Form, Thank You Letter, Antibiotic Education, Prescription Opioid Use form. - Follow up: Private Physician; When: As needed; Reason: Recheck today's complaints, Re-evaluation by your physician. - Problem is new. - Symptoms have improved. Signatures: Dispatcher [employer] EDMS Jose Varela RN RN sg Nieto, Roman, MD MD rn Leal, Jahala, RN RN jl7 Corrections: (The following items were deleted from the chart) 14:36 14:17 10/14/2017 14:17 Discharged to Home. Impression: Chest pain, unspecified. jl7 Condition is Stable. Forms are Medication Reconciliation Form, Thank You Letter, Antibiotic Education, Prescription Opioid Use. Follow up: Private Physician; When: As needed; Reason: Recheck today's complaints, Re-evaluation by your physician. Problem is new. Symptoms have improved. rn
[2017-10-14 14:43] VITALS: TEMP 97.8; O2SAT 99
[2017-10-14 14:44] VITALS: BP 139/88
--- NOTE | 2017-10-15 06:49 | EKG ---
Test Date: 2017-10-14 Test Time: 14:22:42 Hospice Coordinator: AMALIA MEASUREMENT RESULTS: Intervals: Rate: 51 NH: 154 QRSD: 98 QT: 450 QTc: 414 [place]: P: 3 NH: 154 QRS: -4 T: 7 INTERPRETIVE STATEMENTS: Sinus bradycardia with sinus arrhythmia Minimal voltage criteria for LVH, may be normal variant Borderline ECG Compared to ECG 10/14/2017 13:13:41 Left ventricular hypertrophy now present Sinus rhythm no longer present Electronically Signed On 10-15-17 06:48:36 CDT by Mateus Rudolph
--- NOTE | 2017-10-15 06:50 | EKG ---
Test Date: 2017-10-14 Test Time: 13:13:41 Television Director: FLOR MEASUREMENT RESULTS: Intervals: Rate: 61 HI: 154 QRSD: 100 QT: 444 QTc: 446 [place]: P: 39 HI: 154 QRS: 1 T: 13 INTERPRETIVE STATEMENTS: Normal sinus rhythm Normal ECG Compared to ECG 10/04/2017 01:13:36 No significant changes Electronically Signed On 10-15-17 06:48:39 CDT by Mateus Rudolph
== END 2017-10-14 14:36 | disposition home or self-care (01) ==
LOC: ER 12:52
DX: R07.9 Chest pain, unspecified (principal); F41.9 Anxiety disorder, unspecified
CPT/HCPCS: 36415; 71045; 80048; 84484; 85025; 93005; 99285